=== PATIENT | female | born 1935 | race Caucasian/White ===

== ENCOUNTER 2017-07-19 17:02 | Emergency (ER) | payer MEDICARE, OTHER ==
[~2017-07-19] VITALS: Ht 167.6 cm; Wt 78.5 kg
[2017-07-19 17:30] VITALS: BP 184/104
[2017-07-19] MEDS ORDERED: DECADRON IH STA (17:38)
[2017-07-19] MEDS ORDERED: SOLU-MEDROL IM STA (17:38)
[2017-07-19] MEDS ORDERED: DUONEB 0.5 MG-3 MG/3 ML SOLN IH STA (17:38)
[2017-07-19] MEDS ORDERED: DECADRON ONE (17:46)
[2017-07-19] MEDS ORDERED: DUONEB 0.5 MG-3 MG/3 ML SOLN IH ONE (17:46)
--- NOTE | 2017-07-19 17:47 | PCM.EKG ---
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
[2017-07-19 18:02] LABS: BASOPHIL % 0.3 % (0.0-0.2); EOSINOPHIL # 0.3 10^3/uL (0.0-0.2); EOSINOPHIL % 2.1 % (0.0-5.0); HEMOGLOBIN 12.5 g/dL (12.0-15.0); LYMPHOCYTES # 1.1 10^3/uL (1.0-4.8); MEAN CELL HGB 31.5 pg (26-34); MEAN CELL HGB CONCENTRATION 31.2 g/dL (33-37); MEAN PLATELET VOLUME 10.5 fL (7.8-11.0); MONOCYTES # 0.9 10^3/uL (0.3-0.8); MONOCYTES % 7.9 % (5.0-12.0); NEUTROPHIL # 9.5 10^3/uL (1.8-7.7); NEUTROPHILS % 80.4 % (41.0-85.0); RED CELL DISTRIBUTION WIDTH 14.3 % (11.5-14.5); WHITE BLOOD CELL 11.8 10^3/uL (4.5-11.0)
[2017-07-19 18:02] LABS: ABG PH 7.354 (7.350-7.450); BE(B) 0.1 mmol/L (-2.0-2.0); HCO3act 26.1 mmol/L (22.0-26.0); pO2 54.3 mmHg (75.0-100.0)
[2017-07-19 18:30] VITALS: BP 174/88
[2017-07-19 18:46] LABS: ALANINE AMINOTRANSFERASE(ML) 15 U/L (12-78); ALKALINE PHOSPHATASE 79 U/L (50-136); ASPARTATE AMINO TRANSFERASE 15 U/L (0-35); CALCIUM 8.5 mg/dL (8.4-10.5); CARBON DIOXIDE 26.8 mmol/L (20.0-32); GLUCOSE 127 mg/dL (70-110)
--- NOTE | 2017-07-19 18:49 | ER.PDOC ---
General Chief Complaint: Dyspnea/Respdistress Stated Complaint: TROUBLE TALKING,CONGESTION Time seen by MD: 18:48 Source: patient Exam Limitations: no limitations History of Present Illness Initial Comments Trouble breathing and cough for past few days Severity: moderate Prior Episodes/Possible Cause: no prior episodes Associated Symptoms: cough Allergies: Coded Allergies: No Known Allergies (Unverified , 07/19/17) Past Medical History Medical History: hypertension Social History Smoking: cigarettes Alcohol Use: none Drug Use: none Review of Systems Constitutional: no symptoms reported EENTM: no symptoms reported Respiratory: see HPI Cardiovascular: no symptoms reported Gastrointestinal: no symptoms reported Genitourinary: no symptoms reported All Other Systems: Reviewed and Negative Physical Exam General Appearance: No Apparent Distress, WD/WN HEENT: PERRL/EOMI Neck: Non-Tender, Full Range of Motion, Supple, Normal Inspection Respiratory: chest non-tender, no respiratory distress, wheezing Cardiovascular: Normal Peripheral Pulses, Regular Rate, Rhythm, No Edema, No Gallop, No JVD, No Murmur Gastrointestinal: Normal Bowel Sounds, No Organomegaly, No Pulsatile Mass, Non Tender, Soft Extremities: Normal Range of Motion, Non-Tender, Normal Inspection, No Pedal Edema, No Calf Tenderness, Normal Capillary Refill 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 NML as Tested, No Motor/Sensory Deficits, Alert, Normal Mood/Affect, Oriented x 3 Skin: Normal Color, Warm/Dry Results/Orders Results/Orders Laboratory Tests Test 07/19/17 17:50 07/19/17 17:55 07/19/17 18:21 White Blood Count 11.8 10^3/uL (4.5-11.0) Red Blood Count 3.97 10^6/uL (4.00-5.20) Hemoglobin 12.5 g/dL (12.0-15.0) Hematocrit 40.1 % (36.0-46.0) Mean Corpuscular Volume 101.0 fL (78-100) Mean Corpuscular Hemoglobin 31.5 pg (26-34) Mean Corpuscular Hemoglobin Concent 31.2 g/dL (33-37) Red Cell Distribution Width 14.3 % (11.5-14.5) Platelet Count 202 10^3/uL (150-400) Mean Platelet Volume 10.5 fL (7.8-11.0) Neutrophils (%) (Auto) 80.4 % (41.0-85.0) Lymphocytes (%) (Auto) 9.0 % (24.0-44.0) Monocytes (%) (Auto) 7.9 % (5.0-12.0) Neutrophils # (Auto) 9.5 10^3/uL (1.8-7.7) Lymphocytes # (Auto) 1.1 10^3/uL (1.0-4.8) Monocytes # (Auto) 0.9 10^3/uL (0.3-0.8) Absolute Immature Granulocyte (auto 0.03 10^3 u/L (0-2) Eosinophils % 2.1 % (0.0-5.0) Basophils % 0.3 % (0.0-0.2) Basophils # 0.0 10^3/uL (0.0-0.1) Eosinophil Count 0.3 10^3/uL (0.0-0.2) Prothrombin Time 9.2 SEC (9.8-11.9) Prothrombin Time INR (Non-Therap) 0.9 Activated Partial Thromboplast Time 26.0 SEC (24.67-30.72) D-Dimer 1.84 mg/L (0.19-0.49) Sodium Level 145 mmol/L (132-145) Potassium Level 4.0 mmol/L (3.6-5.2) Chloride Level 108.0 mmol/L (96-109) Carbon Dioxide Level 26.8 mmol/L (20.0-32) Anion Gap 14.2 Blood Urea Nitrogen 16 mg/dL (7-18) Creatinine 1.38 mg/dL (0.59-1.40) Estimated GFR () 44.5 (>/=60) BUN/Creatinine Ratio 11.0 Glucose Level 127 mg/dL (70-110) Calcium Level 8.5 mg/dL (8.4-10.5) Total Bilirubin 0.3 mg/dL (0.2-1.0) Aspartate Amino Transf (AST/SGOT) 15 U/L (0-35) Alanine Aminotransferase (ALT/SGPT) 15 U/L (12-78) Alkaline Phosphatase 79 U/L (50-136) Total Creatine Kinase 40 U/L (26-192) Creatine Kinase MB 0.6 ng/mL (0.5-3.6) Troponin I < 0.02 ng/mL (0.00-0.05) Pro-B-Type Natriuretic Peptide 1220 pg/mL (0-450) Total Protein 6.7 g/dL (6.4-8.2) Albumin 3.4 g/dL (3.4-5.0) Globulin 3.3 Percent Immature Gran (Cell Imm) 0.30 % (0.00-0.50) Blood Gas Sample Site RT BRACIAL ARTERY Blood Gas pH 7.354 (7.350-7.450) Blood Gas PCO2 48.0 mmHg (35.0-45.0) Blood Gas PO2 54.3 mmHg (75.0-100.0) Blood Gas HCO3 26.1 mmol/L (22.0-26.0) Blood Gas Base Excess 0.1 mmol/L (-2.0-2.0) Edinson Test N/A Arterial Blood Oxygen Saturation 88.1 % (95-) Deoxyhemoglobin 11.6 % (0.2-0.6) Carboxyhemoglobin 2.1 % (0.5-1.5) Methemoglobin 0.4 % (0.2-0.6) Total Hemoglobin 13.4 % (13.5-17.5) Total Oxygen Concentration 16.2 % (13.5-17.5) Lactic Acid (Blood Gas) 1.0 MMOL/L (0.5-1.0) Blood Gas Temperature 37 Oxygen Delivery Method (LAB) RA FiO2 21.0 % (20-101) Bicarbonate 27.6 mmol/L (23-27) Influenza Type A Antigen NEGATIVE (NEG) Influenza B Immunofluorescence NEGATIVE (NEG) Administered Medications Medications (Trade) Dose Ordered Sig/Sofy Route PRN Reason Start Time Stop Time Status Last Admin Dose Admin Albuterol/ Ipratropium (Duoneb 0.5 Mg-3 Mg/3 ml Soln) 3 ml STAT STAT IH 07/19/17 17:38 07/19/17 17:39 DC 07/19/17 17:38 Dexamethasone Sodium Phosphate (Decadron) 4 mg STAT STAT IH 07/19/17 17:38 07/19/17 17:39 DC 07/19/17 17:38 Methylprednisolone Sodium Succinate (Solu-Medrol) 125 mg STAT STAT IV 3/21/18 19:27 07/19/17 19:29 DC 07/19/17 19:41 Progress Progress Patient's Oxygen is hypoxic but refused admission and left AMA. She understands the risk of worsening condition, and . She will go home on Z pack, Medrol dose pack and Albuterol HFA. EKG/XRAY/CT/US EKG: NSR CT Comments: CTA chest shows COPD, nothing acute, no PE Course Blood Pressure Systolic: 184 Blood Pressure Diastolic: 104 Blood Pressure Mean: 130 Departure Time of Disposition: 20:33 Disposition: 07 AGAINST MEDICAL ADVICE Impression: Primary Impression: Acute respiratory failure Additional Impression: COPD exacerbation Condition: Against Medical Advice Referrals: PCP,UNKNOWN (PCP) PRIMARY CARE PROVIDER Duration or Time Spent with Pa: 2 hours Problem Qualifiers Primary Impression: Acute respiratory failure Respiratory failure complication: hypoxia Qualified Codes: J96.01 - Acute respiratory failure with hypoxia HARITHA,AKSHAT Barrera MD Jul 19, 2017 18:49
[2017-07-19] MEDS ORDERED: SOLU-MEDROL IV STA (19:27)
[2017-07-19] MEDS ORDERED: SOLU-MEDROL ONE (19:29)
[2017-07-19 19:30] VITALS: BP 180/87
--- NOTE | 2017-07-19 19:30 | NUR ---
RAD PT BACK FROM RAD
--- NOTE | 2017-07-19 20:08 | DIREP ---
PROCEDURE:CT PULMONARY ANGIOGRAM AND CT VENOGRAM TECHNIQUE:Following the intravenous administration of contrast material, axial cuts were obtained through the chest. Multiplanar / 3-D reconstructions are provided. Satisfactory pulmonary arterial contrast opacification was achieved. Delayed images through the pelvis and upper legs were acquired for a CT venogram. The images were viewed at lung and soft tissue settings. COMPARISON:None. INDICATIONS:Dyspnea FINDINGS: PULMONARY ARTERIES:No sizable pulmonary embolus. VEINS OF PELVIS/LEGS:Suboptimal opacification of the deep venous structures without convincing evidence for deep venous thrombus. LUNGS:COPD/emphysema. No superimposed airspace consolidation, pleural effusion or pneumothorax. Scattered calcified granuloma with scattered areas of presumed scarring. CARDIAC:The heart is not enlarged. No pericardial effusion. Fairly diffuse coronary artery calcifications. THORACIC AORTA:Subtle contour irregularities of the aorta without aneurysmal dilatation. Fairly diffuse calcified and noncalcified plaque. No appreciable dissection. MEDIASTINUM:The thyroid gland is partially imaged. The imaged thyroid gland is heterogenous. There does appear to be extension of the right thyroid lobe posterior to the esophagus. No suspicious mediastinal lymphadenopathy. Tiny hiatal hernia. BONES:Severe compression deformity of T12. This is of indeterminate chronicity. Mild degenerative changes. PELVIS:Colonic diverticulosis without convincing evidence to suggest acute diverticulitis. Hyperdense foci within the left adnexal region, potentially reflecting hemorrhagic cysts within the left ovary. Normal appendix. OTHER:Apparent postoperative changes within the left breast. CONCLUSION: 1. No sizable pulmonary embolus. Suboptimal opacification of the deep venous structures without convincing evidence for deep venous thrombus. 2. 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 3. Severe compression deformity of T12 is of indeterminate chronicity. 4. Additional findings as above. Dictated by: Chi Zuniga M.D. On 07/19/2017 at 07:55 PM
[2017-07-19 20:30] VITALS: BP 161/82
[2017-07-19 20:34] VITALS: BP 174/88
== END 2017-07-19 20:37 | disposition left against medical advice (07) ==
LOC: ER 17:02
DX: J96.01 Acute respiratory failure with hypoxia (principal); J44.1 Chronic obstructive pulmonary disease with (acute) exacerbation; I10 Essential (primary) hypertension; F17.210 Nicotine dependence, cigarettes, uncomplicated; R79.1 Abnormal coagulation profile
CPT/HCPCS: 36415; 36600; 71275; 73701; 80053; 82550; 82553; 82803; 83880; 84484; 85025; 85379; 85610; 85730; 86710; 87040 ×2; 93005; 94640; 96374; 99291; 99292; J1100; J2930; J7620; 73706; Q9965